=== PATIENT | female | born 1955 | race Caucasian/White ===

== ENCOUNTER 2021-02-12 13:22 | Outpatient (REF) | payer OTHER, SELFPAY ==
[2021-02-12 14:23] LABS: Anion Gap 13 (12-20); Blood Urea Nitrogen 18 mg/dL (9-16); Calcium 9.2 mg/dL (8.4-10.2); Carbon Dioxide 24 mmol/L (22-29); Chloride 107 mmol/L (96-108); Estimated Glomerular Filt Rate > 60; Glucose Random 98 mg/dL (60-115); Potassium 4.6 mmol/L (3.3-5.1); Sodium 139 mmol/L (135-145)
[2021-02-12 14:54] LABS: Thyroid Stimulating Hormone 1.92 uIU/mL (0.32-4.0)
[2021-02-12 14:56] LABS: Folate 11.4 ng/mL (> or = 4.0); Vitamin B12 410 pg/mL (200-900)
[2021-02-12 15:27] LABS: T4 Thyroxine 8.4 ug/dL (4.5-12.0)
[2021-02-13 06:02] LABS: Triiodothyronine T3 Total 128 ng/dL (76-181)
[2021-02-13 13:07] LABS: Lyme Abs Screen <0.90 index
[2021-02-13 13:45] LABS: IgA 309 mg/dL (70-320); IgG 841 mg/dL (600-1540); IgM 37 mg/dL (50-300)
== END 2021-02-12 13:23 | disposition home or self-care (01) ==
LOC: HO.LAB 13:22
PROVIDERS: PCP Internal Medicine; Visit Provider Psychiatry & Neurology Neurology
DX: G62.89 Other specified polyneuropathies (principal); E05.90 Thyrotoxicosis, unspecified without thyrotoxic crisis or storm
CPT/HCPCS: 36415; 80048; 82607; 82746; 82784; 84436; 84443; 84480; 86617; 86618

== ENCOUNTER 2023-04-13 12:39 | Outpatient (AMB) | payer MEDICARE, SELFPAY ==
--- NOTE | 2023-04-13 12:41 | A.OFFVIS_ITS ---
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 States she is having numbness and tingling in bilateral hands that started about ago. States left is worse.No EMG done. Hx of peripheral polyneuropathy mostly in her lower extremities. 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 This has improved in the last few weeks since she was referred here. She reports getting occasional numbness to the tips of her fingers. She says she has a hx of right carpal tunnel release several years ago with good results. She has a hx of longstanding polyneuropathy, primarily affecting her legs, and denies any history of Diabetes She has left lateral epicondylitis, her PCP gave her a handout of stretches & e xercises for lateral epicondylitis that she has been performing at home. She says her symptoms have been improving and now only occur occasionally. 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 [facility] Medical History (Updated 04/13/23 @ 13:00 by John Garcia) Cataract Hx of breast cancer Social History (Updated 04/13/23 @ 12:51 by Kerry Fitzpatrick 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 Review of Systems Const All systems reviewed & are unremarkable except as noted in HPI and below Physical Exam Vital Signs: BMI result Body Mass Index 32.1 Const General: cooperative, healthy appearing and no acute distress Orientation/consciousness: patient oriented x3 HEENT Head: Yes normocephalic and Yes atraumatic Eyes EOM: EOMs intact bilaterally Resp Effort & Inspection: normal respiratory effort and able to speak in complete sentences Cardio Jugular venous distension: no JVD Skin General skin exam: turgor normal Rashes: no rashes Neuro General: patient oriented x3 Extrem Other: Evaluation of Left Upper Extremity: The patient is alert, oriented, and in no acute distress Neuro: Median, Ulnar, Radial nerves motor and sensory intact today. No intrinsic or thenar wasting. Good finger cross and APB muscle belly firing Vascular: Cap refill brisk ROM: She can make a fist and extend all her digits No locking or catching Skin: No lacerations or abrasions. General: No Ecchymosis. No Erythema or evidence of infection. She is seen today wearing a left proximal forearm strap Mildly tender at the extensor origin just distal to the lateral epicondyle no swelling Psych Appearance: grossly normal Affect: normal affect Attitude: cooperative Assessment & Plan Assessment & Plan (1) Numbness of left hand: Code(s): R20.0 - Anesthesia of skin (2) History of carpal tunnel surgery of right wrist: Code(s): Z98.890 - Other specified postprocedural states (3) Left lateral epicondylitis: Code(s): M77.12 - Lateral epicondylitis, left elbow Plan Assessment & Plan: 1. Left hand numbness Symptoms intermittent & occasional, but several weeks ago was daily & worse at night She reports a hx of polyneuropathy primarily affecting her lower extremities, and denies any Diabetes I educated her about carpal & cubital tunnel syndrome I ordered a NCS to assess for peripheral nerve compression She will follow up when completed for review 2. Left lateral epicondylitis She is seen wearing a proximal forearm strap. I educated her about this condition She has been performing at-home stretches & exercises, which she says have im proved her symptoms She now has only occasional pain with some activities I recommend she continue with her exercises No intervention warranted today If her symptoms persist or worsen she can follow up and we can discuss treatment options, including a brace, OT referral, or possible steroid injection 3. History of right carpal tunnel release No complaints of numbness today Scribed for Lesli Roberts MD by John Garcia, medical superintendent, on 04/13/23 at 1:00 PM, EST. Orders: Orders NE nerve conduction velocity Today R20.0 - Anesthesia of skin Coding Level of Care Code New Pt Level 3 (88588) Diagnoses Numbness of left hand R20.0 History of carpal tunnel surgery of right wrist Z98.890 Left lateral epicondylitis M77.12
[2023-04-13 12:51] VITALS: BMI 32.1
== END 2023-04-13 13:02 | disposition home or self-care (01) ==
PROVIDERS: PCP Internal Medicine; Visit Provider Orthopaedic Surgery
DX: M79.642 Pain in left hand (principal); R20.0 Anesthesia of skin; M77.12 Lateral epicondylitis, left elbow
CPT/HCPCS: 99202

== ENCOUNTER → 2023-04-13 12:39 | Outpatient (BNVA) | payer MEDICARE, SELFPAY | PROVIDERS: PCP Internal Medicine; Visit Provider Orthopaedic Surgery | DX: R20.0 Anesthesia of skin (principal); M77.12 Lateral epicondylitis, left elbow; Z98.890 Other specified postprocedural states | CPT/HCPCS: 99202 ==

== ENCOUNTER 2023-05-07 15:31 | Outpatient (REF) | payer MEDICARE, SELFPAY ==
--- NOTE | 2023-05-07 15:35 | EMG_ITS ---
Chief complaint: Left hand numbness, elbow pain, improved with wearing counterforce brace Reason for referral: Evaluate for Carpal Tunnel Syndrome Referred by: Dr. Roberts Procedure done: Left upper extremity NCS/EMG Precautions and/or limitations: None The limb temperature was monitored continuously and remained between 32-36 degrees C during the performance of the NCS. Nerve Conduction Studies Anti Sensory Summary Table ?Stim Site NR Onset (ms) Norm Onset (ms) Peak (ms) Norm Peak (ms) O-P Amp (?V) Norm O-P Amp Site1 Site2 Delta-0 (ms) Dist (cm) David (m/s) Norm David (m/s) Left Median Anti Sensory (2nd Digit) Wrist ? 4.1 4.9 <3.6 4.7 >10 Wrist 2nd Digit 4.1 14.0 34 Left Radial Anti Sensory (Thumb) Forearm ? 1.9 2.3 <3.1 15.9 Forearm Thumb 1.9 0.0 Left Ulnar Anti Sensory (5th Digit) Wrist ? 3.0 3.6 <3.7 19.8 >15.0 Wrist 5th Digit 3.0 14.0 47 Motor Summary Table ?Stim Site NR Onset (ms) Norm Onset (ms) O-P Amp (mV) Norm O-P Amp iAmp (mV) Amp (1st) (%) Site1 Site2 Delta-0 (ms) Dist (cm) David (m/s) Norm David (m/s) Left Median Motor (Abd Poll Brev) Wrist ? 4.3 <3.9 10.0 >4.5 12.2 100.0 Elbow Wrist 4.3 22.0 51 >45 Elbow ? 8.6 9.9 12.0 99.0 Left Ulnar Motor (Abd Dig Minimi) Wrist ? 2.7 <3.0 8.6 >5 11.2 100.0 B Elbow Wrist 3.5 21.0 60 >45 B Elbow ? 6.2 9.0 11.4 104.7 A Elbow B Elbow 1.5 10.0 67 >45 A Elbow ? 7.7 8.6 10.8 100.0 EMG ?Side Muscle Nerve Root Ins Act Fibs Psw Amp Dur Poly Recrt Int Pat Comment Left 1stDorInt Ulnar C8-T1 Nml Nml Nml Nml Nml 0 Nml Complete Left FlexCarRad Median C6-7 Nml Nml Nml Nml Nml 0 Nml Complete Left Biceps Musculocut C5-6 Nml Nml Nml Nml Nml 0 Nml Complete Left Triceps Radial C6-7-8 Nml Nml Nml Nml Nml 0 Nml Complete Left Deltoid Axillary C5-6 Nml Nml Nml Nml Nml 0 Nml Complete FINDINGS: Left median motor nerve showed prolonged distal latency, normal amplitude and normal conduction velocity. Left median sensory nerve showed prolonged peak latency and small amplitude. All other nerves tested were within normal. Concentric needle EMG was performed in selected muscles of the left upper extremity. Study did not reveal signs of electric abnormalities as shown in the table below. IMPRESSION: 1. This is an abnormal study. 2. There is electrodiagnostic evidence for left moderate-severe median neuropathy at the wrist, consistent with carpal tunnel syndrome. 3. There is no electrodiagnostic evidence for ulnar neuropathy, brachial plexopathy, or cervical radiculopathy. Thank you for your kind referral. Evy Khan MD, MITCHEL Board Certified, [place] [employer] and Rehabilitation (ABPMR) Board Certified, [place] Board of Electrodiagnostic Medicine (ABEM) CODIN [id number] MTDD
== END 2023-05-07 15:32 | disposition home or self-care (01) ==
LOC: HO.NEURO 15:31
PROVIDERS: PCP Internal Medicine; Visit Provider Orthopaedic Surgery
DX: R20.0 Anesthesia of skin (principal)
CPT/HCPCS: 95886; 95909

== ENCOUNTER → 2023-05-07 15:35 | Outpatient (BNV) | payer MEDICARE, SELFPAY | PROVIDERS: PCP Internal Medicine; Visit Provider Physical Medicine & Rehabilitation | DX: G56.02 Carpal tunnel syndrome, left upper limb (principal); G56.12 Other lesions of median nerve, left upper limb | CPT/HCPCS: 95886; 95909 ==

== ENCOUNTER 2023-12-07 11:04 | Outpatient (AMB) | payer BC, SELFPAY ==
--- NOTE | 2023-12-07 11:36 | MHC.OFFVIS ---
Vital Signs 12/07/23 11:40 Height 5 ft 7 in Weight 205 lb BMI 32.1 Intake Visit Reasons: OV-left CTR. EMG done 04/2023 -discuss surgery Intake Note: Lizbeth 68 yr old right hand female who presents today for evaluation of left hand carpal tunnel syndrome. Patient reports numbness and tingling that occurs daily however she reports no trouble squeezing, gripping, or opening and closing jars or bottles. Denies finger locking. Patient denies any surgeries or injuries to the left hand. Hx right CTR. EMG showing left CTS, DOS: 05/07/23. Allergies No Known Allergies Allergy (Verified 12/07/23 11:46) HPI HPI OV-left CTR. EMG done 04/2023 -discuss surgery: Details: Lizbeth is a 68 year old right hand dominant woman who returns for a NCS review of her left hand numbness She complains of numbness in her left thumb, index, and middle fingers. She says this is worse in her thumb & index fingers, and she recently began feeling a constant buzzing sensation in these fingers. Symptoms daily, worse at night or with activities. She says she has a hx of right carpal tunnel release several years ago with good results. She has left lateral epicondylitis, her PCP gave her a handout of stretches & exercises for lateral epicondylitis that she has been performing at home. She says her symptoms have been improving and now only occur occasionally. She has a hx of longstanding polyneuropathy, primarily affecting her legs, and denies any history of Diabetes. 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 Normal sensation to the ulnar nerve distribution No intrinsic or thenar wasting. Good finger cross and APB muscle belly firing Vascular: Cap refill brisk ROM: She can make a fist and extend all her digits No locking or catching Nerve Conduction Study: IMPRESSION: 1. This is an abnormal study. 2. There is electrodiagnostic evidence for left moderate-severe median neuropathy at the wrist, consistent with carpal tunnel syndrome. 3. There is no electrodiagnostic evidence for ulnar neuropathy, brachial plexopathy, or cervical radiculopathy. Evy Khan MD, MITCHEL 05/07/23 Assessment & Plan Assessment & Plan (1) Carpal tunnel syndrome of left wrist: Code(s): G56.02 - Carpal tunnel syndrome, left upper limb Category: Medical (2) History of carpal tunnel surgery of right wrist: Code(s): Z98.890 - Other specified postprocedural states Category: Surgical (3) Left lateral epicondylitis: Code(s): M77.12 - Lateral epicondylitis, left elbow Category: Medical Plan Assessment & Plan: 1. Left carpal tunnel syndrome, moderate-severe Decreased sensation in the median nerve distribution. She reports a hx of polyneuropathy primarily affecting her lower extremities, and denies any Diabetes I educated her about this condition I discussed operative and non-operative treatment options The patient would like to proceed with surgery The risks and benefits of operative treatment were discussed with the patient and the patient wishes to proceed with surgery. These risks include, but are not limited to risk of damage to blood vessels, nerves, tendons, infection, recurrence, incomplete relief of preoperative symptoms, persistent pain, possible need for further surgery and the risks associated with regional blocks and anesthesia. The plan is to take the patient to the operating room sometime in the next few weeks for the following procedures: 1. Left carpal tunnel release, under local All of the preoperative paperwork including the consent was reviewed today. All the patient's questions were answered. The patient understands that they will be contacted by our boarder hand soon to schedule this procedure She denies Diabetes, asthma, lung, kidney issues She is on Warfarin 2. Left lateral epicondylitis She is seen wearing a proximal forearm strap. No complaints today She has been performing at-home stretches & exercises, which she says have improved her symptoms I recommend she continue with her exercises No intervention warranted today If her symptoms persist or worsen she can follow up and we can discuss treatment options, including a brace, OT referral, or possible steroid injection 3. History of right carpal tunnel release No complaints of numbness today Scribed for Lesli Roberts MD by John Garcia, medical detail representative, on 12/07/23 at 12:00 PM, EST. Coding Level of Care Code Est Pt Level 4 (84979) Diagnoses Carpal tunnel syndrome of left wrist G56.02 History of carpal tunnel surgery of right wrist Z98.890 Left lateral epicondylitis M77.12
[2023-12-07 11:40] VITALS: BMI 32.1
== END 2023-12-07 12:24 | disposition home or self-care (01) ==
PROVIDERS: PCP Internal Medicine; Visit Provider Orthopaedic Surgery
DX: G56.02 Carpal tunnel syndrome, left upper limb (principal); M77.12 Lateral epicondylitis, left elbow
CPT/HCPCS: 99214

== ENCOUNTER → 2023-12-07 11:04 | Outpatient (BNVA) | payer BC, SELFPAY | PROVIDERS: PCP Internal Medicine; Visit Provider Orthopaedic Surgery ==

== ENCOUNTER 2024-02-28 13:12 | Day surgery (SDC) | payer MEDICARE, SELFPAY ==
[2024-02-28 14:02] VITALS: BP 121/70; PULSE 86; RESP 18; TEMP 36.6; O2SAT 97; BMI 32.4
--- NOTE | 2024-02-28 15:38 | MHC.SHP ---
Pre-Procedural Eval Section A - 24 Hr Update-Section A only Date of Service: 02/28/24 The patient is an INPATIENT: No Changes since office visit: No Cold of Flu in the past 2 weeks, No New Medical Problems, No Changes in Medication and No Patient answered all questions The patient has been examined within 24 hours of the surgical procedure. The History & Physical has been completed within 30 days and I have reviewed it.: Yes Section B - Complete if H&P > 30 days Chief Complaint: Carpal tunnel syndrome, left upper limb Allergies: Allergies Allergy/AdvReac Type Severity Reaction Status Date / Time No Known Allergies Allergy Verified 12/07/23 11:46 Plan Diagnosis/Plan: Unchanged I have reviewed the history and physical and performed a pertinent physical examination on my patient. No changes have occurred unless specified. Time Spent With Patient Time: Total time managing care of this patient today ____ minutes.
--- NOTE | 2024-02-28 15:46 | P.OP_ITS ---
Operative Note Operative Note Date of Service: 02/28/24 Narrative: Preop diagnosis: 1. Left Carpal tunnel syndrome Postop diagnosis: same Procedure: 1. Left Carpal tunnel release Surgeon: Lesli Roberts MD Extension Work Director: None Anesthesia: local block using 1% lidocaine with epinephrine Findings: Thickened transverse carpal ligament. EBL: Less than 5 mL Specimens: None Complications: None Disposition: Brought to recovery room in stable condition Plan: Follow-up for 10-14 days for wound check and suture removal Indications: The patient is 68 years old, with left carpal tunnel syndrome that has been unresponsive to nonoperative management. The risks and benefits of operative treatment including but not limited to risk of damage to blood vessels, nerves, tendons, infection, persistent pain, persistent symptoms, or possible need for additional surgery were discussed with the patient and the patient wishes to proceed with surgery. Procedure: Once consent was obtained a local block was performed using a combination of 1% lidocaine with epinephrine. The patient was then brought back to the operating suite and placed on the operative table in supine position. The left upper extremity was prepped and draped in a standard surgical fashion. Once assured that we had a good block, a 2.0 cm longitudinal incision was made centered over the carpal tunnel. The incision was made through the skin to the subcutaneous tissues using a #15 blade. Dissection was made down to the level of the transverse carpal ligament with care being taken to protect the palmar cutaneous nerve. Once the transverse carpal ligament was clearly visualized, a longitudinal incision was made in the transverse carpal ligament 1st using a #15 blade, then using tenotomy scissors under direct visualization. Care was taken to look for and protect the motor branch of the median nerve when seen in this area. Once satisfied with our carpal tunnel release the wound was copiously irrigated with normal saline and hemostasis was obtained with a brief period of local pressure. The skin edges were reapproximated with some 5.0 nylon suture material and a sterile dressing was applied. The patient appears to have tolerated the procedure well and with no complicatio ns. All digits were well vascularized at the conclusion of the case.
[2024-02-28 16:20] VITALS: BP 133/84; PULSE 77; RESP 18; TEMP 36.6; O2SAT 96
== END 2024-02-28 16:40 | disposition home or self-care (01) ==
PROVIDERS: PCP Internal Medicine; Visit Provider Orthopaedic Surgery
PROC: (CPT 64721; principal; 2024-02-28 14:50)
DX: G56.02 Carpal tunnel syndrome, left upper limb (principal); R20.0 Anesthesia of skin; R20.2 Paresthesia of skin; M77.12 Lateral epicondylitis, left elbow; Z85.3 Personal history of malignant neoplasm of breast; G62.9 Polyneuropathy, unspecified; Z79.01 Long term (current) use of anticoagulants; Z98.890 Other specified postprocedural states
CPT/HCPCS: 64721; J0171; J2003; J2004

== ENCOUNTER → 2024-02-28 13:12 | Outpatient (BNV) | payer MEDICARE, SELFPAY | PROVIDERS: PCP Internal Medicine; Visit Provider Orthopaedic Surgery | DX: G56.02 Carpal tunnel syndrome, left upper limb (principal) | CPT/HCPCS: 64721 ==

== ENCOUNTER 2024-03-03 15:05 | Outpatient (AMB) | payer MEDICARE, SELFPAY ==
--- NOTE | 2024-03-03 15:47 | A.OFFVIS_ITS ---
Intake Visit Reasons: PO LT CTR 02/28/24 AR, redness/swelling Intake Note: Lizbeth is a 68 year old right hand dominant female who presents today for a post operative visit s/p left carpal tunnel release DOS: 02/28/2024. Patient reports swelling and tenderness in her pointer finger. States that she is scheduled to s ee her PCP on Wednesday but feels she should be seen here sooner due to her recent surgery. Allergies No Known Allergies Allergy (Verified 03/21/24 13:15) HPI HPI PO LT CTR 02/28/24 AR, redness/swelling: Details: Lizbeth is a 68 year old right hand dominant female who presents today for a post operative visit s/p left carpal tunnel release DOS: 02/28/2024. Patient reports swelling and tenderness in her pointer finger. States that she is scheduled to see her PCP on Wednesday but feels she should be seen here sooner due to her recent surgery. 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 Neuro: Normal sensation of the tips of all digits of the left hand at this time Vascular: Cap refill brisk Pain: Minimal tenderness to palpation about the proximal aspect of the incision site No pain with range of motion of the left hand ROM: Patient is able to make a closed fist and extend all digits of the left hand fully and without difficulty Skin: Well-approximated incision site noted on the volar left wrist very mild erythema of the incision site, appears hyperemic General: No ecchymosis or other evidence of infection. Psych: Appears grossly normal Affect normal Attitude cooperative Assessment & Plan Assessment & Plan (1) Carpal tunnel syndrome of left wrist: Code(s): G56.02 - Carpal tunnel syndrome, left upper limb Category: Medical Plan 1. status post left carpal tunnel release DOS 02/28/2024 Patient appears to be recovering well postoperatively Patient is educated about the typical recovery course Patient will follow-up in 1 week for wound check Patient was amenable to this plan Medications: New amoxicillin-pot clavulanate 875-125 mg 1 tab PO BID 14 tabs 0RF 7 days Coding Level of Care Code Global (14431) Diagnoses Carpal tunnel syndrome of left wrist G56.02
== END 2024-03-03 16:02 | disposition home or self-care (01) ==
PROVIDERS: PCP Internal Medicine
DX: G56.02 Carpal tunnel syndrome, left upper limb (principal)
CPT/HCPCS: 99024

== ENCOUNTER → 2024-03-03 15:05 | Outpatient (BNVA) | payer MEDICARE, SELFPAY | PROVIDERS: PCP Internal Medicine | DX: G56.02 Carpal tunnel syndrome, left upper limb (principal) | CPT/HCPCS: 99212 ==

== ENCOUNTER 2024-03-14 12:51 | Outpatient (AMB) | payer BC, SELFPAY ==
--- NOTE | 2024-03-14 12:58 | A.OFFVIS_ITS ---
Intake Visit Reasons: PO LT CTR 02/28/24 AR Intake Note: Lizbeth is a 89 year old right hand dominant female who presents today for a post operative visit s/p left carpal tunnel release DOS: 02/28/[address] Roberts[address] Sutures removed and steri-strips applied. Patient reports she is doing well, states her numbness and tingling has subsided. Allergies No Known Allergies Allergy (Verified 03/14/24 13:06) HPI HPI PO LT CTR 02/28/24 AR: Details: Lizbeth is a 89 year old right hand dominant female who presents today for a post operative visit s/p left carpal tunnel release DOS: 02/28/[address] Roberts[address] Sutures removed and steri-strips applied. Patient reports she is doing well, states her numbness and tingling has subsided. 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 Neuro: Normal sensation of the tips of all digits of the left hand at this time Vascular: Cap refill brisk Pain: Minimal tenderness to palpation about the proximal aspect of the incision site No pain with range of motion of the left hand ROM: Patient is able to make a closed fist and extend all digits of the left hand fully and without difficulty Skin: Well-approximated incision site noted on the volar left wrist There is noted to be some mild erythema surrounding the most proximal aspect of the incision, concerning for potential cellulitis versus suture irritation General: No ecchymosis, erythema, or evidence of infection. Psych: Appears grossly normal Affect normal Attitude cooperative Assessment & Plan Assessment & Plan (1) Carpal tunnel syndrome of left wrist: Code(s): G56.02 - Carpal tunnel syndrome, left upper limb Category: Medical Plan 1. status post left carpal tunnel release DOS 02/28/2024 Patient appears to be recovering fairly well postoperatively Patient is educated about the typical recovery course Out of an abundance of caution, due to the small amount of erythema noted most proximal aspect of the incision, I am sending her a one-week course of Augmentin Patient will follow-up in 1 week for wound check Patient was amenable to this plan Medications: New amoxicillin-pot clavulanate 875-125 mg 1 tab PO BID 7 days 14 tabs 0RF Coding Level of Care Code Global (66681) Diagnoses Carpal tunnel syndrome of left wrist G56.02
--- OUTSIDE RECORDS SUMMARY | 2024-03-14 13:40 | XMS_ITS | Encounter Summary ---
Author Organization [facility] Address [address] [place] [address] Care Team Providers Care Ship Erector Name Role Phone Lula Ambrose MD Primary Care Prov ider Encounter Details Date Type Department Care Team (Latest Contact Info) Description 02/22/2024 Anticoagulation - Warfarin Visit Coumadin Clinic - [address] [place] [phone] Iram Kitchen LPN Atrial fibrillation, unspecified type (CMS/HCC) (Primary Dx); shelter (current) use of anticoagulants Social History Tobacco Use Types Packs/Day Years Used Date Smoking Tobacco: Former Cigarettes Q uit: 02/15/2003 Smokeless Tobacco: Never Alcohol Use Standard Drinks/Week Comments Yes 0 (1 standard drink = 0.6 oz pur e alcohol) Sex and Gender Information Value Date Recorded Sex Assigned at Female 02/28/2024 9:27 AM EST Gender Identity Female 02/28/2024 9:27 AM EST Sexual Orientation Not on file Job Start Date Occupation Industry Not on file Not on file Not on file documented as of this encounter Plan of Treatment Upcoming Encounters Date Type Department Care Team (Late st Contact Info) Description 04/19/2024 3:30 PM EST Ancillary Procedure [facility] - [address] [place] [phone] 04/24/2024 1:15 PM EDT Office Visit Adult Medicine - [address] [place] [phone] Lula Ambrose MD [address] [place], [place] [phone] 05/16/2024 10:00 AM EDT Office Visit Endocrinology - [place] [address] [place] [phone] Geovanna Pascual PA [address] [place] [address] 06/27/2024 11:30 AM EDT Office Visit [facility] Hematology Oncology [address] [place] [phone] Kobe Fox MD [address] [place] [phone] documented as of this encounter Visit Diagnoses Diagnosis Atrial fibrillation, unspecified type (CMS/HCC)- Primary 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
--- OUTSIDE RECORDS SUMMARY | 2024-03-14 13:40 | XMS_ITS | Encounter Summary ---
Author Organization [facility] Address [address] [place] [address] Care Team Providers Care Hostel Manager Name Role Phone Lula Ambrose MD Primary Care Prov ider Reason for Visit * Reason Onset Date Comments Hospital Follow-up 02/29/2024 Encounter Details Date Type Department Care Team ([facility] st Contact Info) Description 02/29/2024 Telephone Adult Medicine - [facility] [place] [address] [place] [phone] Lula Ambrose MD [address] [place] [address] Hospital Follow-up Social History Tobacco Use Types Packs/Day Years [...] on file documented as of this encounter Progress Notes * Reane Lagos RN - 02/29/2024 3:17 PM EST Spoke with patient. Appt scheduled 03/06 * Porfirio Olivares - 02/29/2024 3:13 PM EST Patient called back. Please call * Phil Patino RN - 02/29/2024 2:54 PM EST Left message for pt to please return our call * Porfirio Olivares - 02/29/2024 2:49 PM EST Hospital/ER follow up appointment needed Hospital patient was treated at: [facility] Was this only an ER visit or was the patient admitted to the hospital? Was there for 4 hours for Carpal tunnel surgery only Date of visit if ER visit only: 02/28/2024 If patient was admitted what was the date of discharge? Reason/diagnosis for visit or stay: Carpal tunnel surgery When was the patient told to follow up? In one week Was visit or stay related to an injury? If yes, what was the date of injury (DOI)? No If yes, was the injury due to: Not 3rd libertarian related documented in this encounter Plan of Treatment Upcoming Encounters Date Type Department Care Team (Late st Contact Info) Description 04/19/2024 3:30 PM EST Ancillary Procedure [facility] - [facility] [address] 300 [facility] [place] [address] [place] [phone] 04/24/2024 1:15 PM EDT Office Visit Adult Medicine - [place] [address] [place] [phone] Lula Ambrose MD [address] [place] [address] 05/16/2024 10:00 AM EDT Office Visit Endocrinology - [address] [phone] Geovanna Pascual PA [address] [place] [address] 06/27/2024 11:30 AM EDT Office Visit [facility] Hematology Oncology [address] [place] [address] Kobe Fox MD [address] [place] [phone] documented as of this encounter Visit Diagnoses Not on filedocumented in this encounter Care Teams Hostel Manager Relationship Specialty Start Date End Date Lula Ambrose MD [address] [place] [address] PCP - General Internal Medicine 12/17/14 documented as of this encounter
--- OUTSIDE RECORDS SUMMARY | 2024-03-14 13:40 | XMS_ITS | Clinical Summary ---
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 2 pill daily Active lisinopriL (PRINIVIL,ZESTRI L) 5 mg tablet Take 1 tablet (5 mg total) by mouth daily. Active warfarin (COUMADIN) 5 mg tablet Take 1 tablet (5 mg total) by mouth daily. Active gabapentin (NEURONTIN) 300 mg capsule TAKE 1 CAPSULE BY MOUTH THREE TIMES A DAY 270 capsule 1 4 Active atorvastatin (LIPITOR) 20 mg tabletIndication s:Hyperlipidemia , unspecified TAKE 1 TABLET BY MOUTH EVERY DAY 90 tablet 2 4 Active tamoxifen (NOLVADEX) 20 mg chemo tablet TAKE 1 TABLET BY MOUTH EVERY DAY 90 tablet 3 5 Active dilTIAZem CD (CARDIZEM CD) 240 mg 24 hr capsule Take 1 capsule (240 mg total) by mouth 1 (one) time each day. 90 each 1 5 09/03/19 25 Active betamethasone, augmented, (DIPROLENE-AF) 0.05 % cream Apply topically 2 (two) times a day. 03/06/19 25 Discontinued(The rapy completed) calcipotriene (DOVONOX) 0.005 % ointment Apply topically 2 (two) times a day. 03/06/19 25 Discontinued(The rapy completed) dilTIAZem CD (CARDIZEM CD) 240 mg 24 hr capsule Take 1 capsule (240 mg total) by mouth daily. 03/06/19 Discontinued(Reo rder) fluocinonide (LIDEX) 0.05 % cream Apply topically 2 (two) times a day. 03/06/19 Discontinued(The rapy completed) ketoconazole (NIZORAL) 2 % cream Apply topically daily. 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 Atypical ductal hyperplasia of left breast 04/16 Encounters Date Type Department Care Team Description 03/06/2024 1:30 PM EST Office Visit Adult Medicine [address] [phone] Lula Wong MD Left carpal tunnel syndrome (Primary Dx); Atrial fibrillation, unspecified type (CMS/HCC) 02/29/2024 Telephone Adult Medicine [address] [phone] Lula Wong MD Hospital Follow-up 02/22/2024 Anticoagulation - Warfarin Visit Coumadin [address] [phone] Iram Kitchen LPN Atrial fibrillation, unspecified type (CMS/HCC) (Primary Dx); 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 01/31/2024 Telephone [facility] - [facility] [address] [facility] [address] [place] [address] Trinh Hooevr MD Med Refill 01/26/2024 Anticoagulation - [facility]farin Visit [facility] [address] [phone] Iram Hirsch LPN Atrial fibrillation, unspecified type (CMS/HCC) (Primary Dx); alf (current) use of anticoagulants 01/11/2024 Anticoagulation - Warfarin Visit [facility] [address] [place] [phone] Cecy Kahn LPN Atrial fibrillation, unspecified type (CMS/HCC) (Primary Dx); alf (current) use of anticoagulants 01/04/2024 11:30 AM EST Office Visit [facility] Hematology Oncology [address] [place] [address] Kobe Fox MD Atypical ductal hyperplasia of left breast (Primary Dx) 12/29/2023 Anticoagulation - Warfarin Visit [facility] [address] [phone] Lula Wong MD from Last 3 Months Immunizations Name Administration Dates Next Due Influenza trivalent, 0.5mL ( Fluad) 65yo and older 03/06/2024 handsomexcutive SARS-CoV-2 COVID-19, mRNA, LNP-S, preservative free 08/04/2021,06/30/2020,06/09/2020 Surgical History Surgery Date Site/Laterality Comments OTHER SURGICAL HISTORY PROCEDURE: [place] NASAL/SINUS NDSC SURG W/BX POLYPC/DBRDMT SPX; COMMENT: 1974 CARPAL TUNNEL RELEASE PROCEDURE: HISTORICAL CARPAL TUNNEL REL; COMMENT: 2014 LIPOMA RESECTION PROCEDURE: SKIN TISSUE EXCISION(LIPOMA); COMMENT: 2014 Medical History Medical History Date Comments Psoriasis DX:Psoriasis Atypical ductal hyperplasia of left breast 07/19/2020 DX:Atypical ductal hyperplas ia of left breast Prediabetes 07/19/2020 DX:Prediabetes Family History Medical History Relation Name Comments Thyroid disease Other 1 mother, sist er Coronary artery disease Uncle 1 mate rnal uncle, in his 60s Relation Name Status Comments Father Alive Mother Alive Other 1 Other 2 Sister 1 Alive Sister 2 Alive Uncle 1 Uncle 2 Social History Tobacco Use Types Packs/Day Years Used Date Smoking Tobacco: Former Cigarettes Q uit: 02/15/2003 Smokeless Tobacco: Never Tobacco Cessation:Counseling Given: Not Answered Alcohol Use Standard Drinks/Week Comments Yes 0 (1 standard drink = 0.6 oz pur e alcohol) Sex and Gender Information Value Date Recorded Sex Assigned at Female 02/28/2024 9:27 AM EST Gender Identity Female 02/28/2024 9:27 AM EST Sexual Orientation Not on file Job Start Date Occupation Industry Not on file Not on file Not on file Obstetrics History Last Filed Vital Signs Vital Sign Reading Time Taken Comments Blood Pressure 108/77 03/06/2024 1:35 PM EST Pulse 98 03/06/2024 1:35 PM EST Temperature 36.7 ??C (98 ??F) 03/06/2024 1:35 PM EST Respiratory Rate - - Oxygen Saturation 97% 01/04/2024 11:39 AM EST Inhaled Oxygen Concentration - - Weight 90.8 kg (200 lb 3.2 oz) 03/06/2024 1:35 P M EST Height 167.6 cm (5' 6 ) 03/06/2024 1:35 PM EST Body Mass Index 32.31 03/06/2024 1:35 PM EST Plan of Treatment Upcoming Encounters Date Type Department Care Team (Late st Contact Info) Description 04/19/2024 3:30 PM EST Ancillary Procedure [facility] - [facility] [address] [facility] [place] [address] [place] [phone] 04/24/2024 1:15 PM EDT Office Visit Adult Medicine [facility] [address] [place] [phone] Lula Ambrose MD [address] [place] [address] 05/16/2024 10:00 AM EDT Office Visit Endocrinology - [address] [phone] Geovanna Pascual PA [address] [place] [phone] 06/27/2024 11:30 AM EDT Office Visit [facility] Hematology Oncology [address] [place] [phone] Kobe Fox MD [address] [place] [phone] Health Maintenance Due Date Last Done Comments Breast Cancer Screening 1955 RSV Immunization Patients 60+ Years Old (1 - Risk 60-74 years 1-dose series) 2016 Cholesterol Screening (Lipid Panel) 01/24/2022 Colorectal Cancer Screening: Colonoscopy 01/24/2022 Depression Screening 01/24/2022 Falls Risk Assessment 01/24/2022 Hepatitis C Screening 01/24/2022 Medicare Annual Wellness Visit 01/24/2022 Social Influencers of Health Screening 01/24/2022 COVID-19 Vaccine ( season) 2023 08/04/2021, 02/09/2021, 06/30/2020, Additional history exists Hypertension/CHF/CAD Annual BMP Blood Test 10/24/2024 10/25/2023 DTaP,Tdap,and Td Vaccines (2 - Td or Tdap) 02/04/2025 02/04/2015 Osteoporosis Screening (Bone Density Screening) 06/06/2033 06/07/2023, 05/09/2020 Zoster Vaccines Completed 02/20/2022, 04/07/2021 Pneumococcal Vaccine: 65+ Years Completed 10/25/2023, 09/30/2021 Influenza Vaccine Completed 03/06/2024, , 01/01/2020 HIB Vaccines Aged Out No longer eligi ble based on patient's age to complete this topic HPV Vaccines Aged Out No longer eligi ble based on patient's age to complete this topic Hepatitis A Vaccines Aged Out No long er eligible based on patient's age to complete this topic Hepatitis B Vaccines Aged Out No long er eligible based on patient's age to complete this topic IPV Vaccines Aged Out No longer eligi ble based on patient's age to complete this topic MMR Vaccines Aged Out No longer eligi ble based on patient's age to complete this topic Meningococcal ACWY Vaccine Aged Out N o longer eligible based on patient's age to complete this topic RSV Immunization Patients Under 20 months Aged Out No longer eligible based on patient's age to complete this topic Varicella Vaccines Aged Out No longer eligible based on patient's age to complete this topic Procedures Procedure Name Priority Date/Time Associated Diagnosis Comments PROTHROMBIN TIME WITH INR Routine 02/22/2024 12:38 PM EST Atrial fibrillation, unspecified type (CMS/HCC) 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 PROTHROMBIN TIME WITH INR Routine 01/25/2024 3:34 PM EST Encounter for therapeutic drug monitoring 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 Protime 25.9(H) 10.6 - 13.9 sec LAB COAGULATION METHOD 02/22/2024 2:28 PM EST [facility] INR 2.1 LAB COAGULATION METHOD 02/22/2024 2:28 PM EST [facility] Blood Venous blood specimen / Unknown Venipuncture / Unknown 02/22/2024 12:38 PM EST 02/22/2024 12:38 PM EST Lula Ambrose MD LAB BLOOD ORDERABLES [facility] [address] [place] [address], * DXA BONE DENSITY STUDY 1+ SITS AXIAL SKEL (06/07/2023 11:36 AM EDT) Anatomical Region Laterality Modality Bone Densitometr y 04/20/2023 10:5 0 AM EST Narrative 06/07/2023 7:05 PM EDT BONE DENSITY ? Lumbar Spine T-score is +0.8 ?? (SD relative to 20-29 y/o adult) Z-score is +2.8 ??(SD relative to age matched peers) This is normal by criteria defined by the WHO. Left Hip T-score is -0.5 Z-score is +1.1 This is normal by criteria defined by the WHO. Comparison exam(s): None Confidence level is +/-95%. Impression: Based on the World Health Organization criteria, Lizbeth Stoddard should be classified as having normal bone density. [facility] Department of Internal Medicine recommends using National Osteoporosis Foundation (NOF) guidelines in treatment decisions related to osteoporosis. NOF guidelines suggest considering treatment for postmenopausal women and men aged 50 or older presenting with the following: History of hip or vertebral fracture. T-score less than or equal to -2.5 (DXA) at the femoral neck, total hip, or spine, after appropriate evaluation to exclude secondary causes. Low bone mass (T-score between -1.0 and -2.5 at the femoral neck or spine) AND a 10-year probability of a hip fracture greater than or equal to 3% OR a 10-year probability of a major osteoporosis-related fracture greater than or equal to 20% based on the [place]-adapted WHO algorithm Please note that all treatment decisions require clinical judgment and consideration of individual patient factors, including patient preferences, co-morbidities, previous drug use, risk factors not captured in the FRAX model (e.g., frailty, falls, vitamin D deficiency, increased bone turnover, interval significant decline in bone density) and possible under- or over-estimation of fracture risk by FRAX. Procedure Note Gregorio Tapia MD - 10/04/2023 BONE DENSITY Lumbar Spine T-score is +0.8 (SD relative to 20-29 y/o adult) Z-score is +2.8 (SD relative to age matched peers) This is normal by criteria defined by the WHO. Left Hip T-score is -0.5 Z-score is +1.1 This is normal by criteria defined by the WHO. Comparison exam(s): None Confidence level is +/-95%. Impression: Based on the World Health Organization criteria, Lizbeth Stoddard should beclassified as having normal bone density. [facility] Department of Internal Medicine recommendsusing National Osteoporosis Foundation (NOF) guidelines in treatmentdecisions related to osteoporosis. NOF guidelines suggest consideringtreatment for postmenopausal women and men aged 50 or older presentingwith the following: History of hip or vertebral fracture. T-score less than or equal to -2.5 (DXA) at the femoral neck, total hip,or spine, after appropriate evaluation to exclude secondary causes. Low bone mass (T-score between -1.0 and -2.5 at the femoral neck or spine)AND a 10-year probability of a hip fracture greater than or equal to 3% ORa 10-year probability of a major osteoporosis-related fracture greaterthan or equal to 20% based on the [place]-adapted WHO algorithm Please note that all treatment decisions require clinical judgment andconsideration of individual patient factors, including patientpreferences, co-morbidities, previous drug use, risk factors not capturedin the FRAX model (e.g., frailty, falls, vitamin D deficiency, increasedbone turnover, interval significant decline in bone density) and possibleunder- or over-estimation of fracture risk by FRAX. Sari YANEZ IMG DXA PROCEDURES from Last 3 Months or Most Recently Relevant to Health Maintenance Care Teams Rafter Cutting Machine Operator Relationship Specialty Start Date End Date Lula Ambrose MD [address] [place] [address] [phone] PCP - General Internal Medicine 12/17/14
--- OUTSIDE RECORDS SUMMARY | 2024-03-14 13:40 | XMS_ITS | Encounter Summary ---
Author Organization [facility] Address [address] [place] [address] Care Team Providers Care Manager Balance Name Role Phone Lula Ambrose MD Primary Care Prov ider Reason for Visit * Reason Comments Hypertension Follow-up Encounter Details Date Type Department Care Team ([facility] Contact Info) Description 03/06/2024 1:30 PM EST Office Visit Adult Medicine - [address] [phone] Lula Ambrose MD [address] [place] [address] Left carpal tunnel syndrome (Primary Dx); Atrial fibrillation, unspecified type (CMS/HCC) Social History Tobacco Use Types Packs/Day Years [...] on file documented as of this encounter Last Filed Vital Signs Vital Sign Reading Time Taken Comments Blood Pressure 108/77 03/06/2024 1:35 PM EST Pulse 98 03/06/2024 1:35 PM EST Temperature 36.7 ??C (98 ??F) 03/06/2024 1:35 PM EST Respiratory Rate - - Oxygen Saturation - - Inhaled Oxygen Concentration - - Weight 90.8 kg (200 lb 3.2 oz) 03/06/2024 1:35 P M EST Height 167.6 cm (5' 6 ) 03/06/2024 1:35 PM EST Body Mass Index 32.31 03/06/2024 1:35 PM EST documented in this encounter Ordered Prescriptions Prescription Sig Dispensed Refills Start Date End Da te dilTIAZem CD (CARDIZEM CD) 240 mg 24 hr capsule Take 1 capsule (240 mg total) by mouth 1 (one) time each day. 90 each 1 03/06/2024 09/02/2024 documented in this encounter Progress Notes * Lula Ambrose MD - 03/06/2024 1:30 PM EST CHIEF COMPLAINT: Hypertension and Follow-up IDENTIFIER: Lizbeth Stoddard is a 68 y.o. old female. HPI: 68-year-old presents alone for follow-up after carpal tunnel release surgery. 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 Atypical ductal hyperplasia of left breast 04/16/2020 SOCIAL HISTORY: Social History Tobacco Use Smoking status: Former Current packs/day: 0.00 Types: Cigarettes Quit date: 02/15/2003 Years since quittin.0 Smokeless tobacco: Never Substance Use Topics Alcohol use: Yes FAMILY HISTORY: Family Status Relation Name Status Other (Not Specified) Uncle (Not Specified) Mother Alive Father Alive Sister Alive Sister Alive Other (Not Specified) Uncle (Not Specified) No partnership data on file Family History Problem Relation Name Age of Onset Thyroid disease Other mother, sister Coronary artery disease Uncle maternal uncle, in his 60s ACTIVE MEDICATIONS: Outpatient Medications Marked as Taking for the 03/06/24 encounter (Office Visit) with Lula Ambrose MD Medication Sig Dispense Refill atorvastatin (LIPITOR) 20 mg tablet TAKE 1 TABLET BY MOUTH EVERY DAY 90 tablet 2 dilTIAZem CD (CARDIZEM CD) 240 mg 24 hr capsule Take 1 capsule (240 mg total) by mouth 1 (one) timeeach day. 90 each 1 gabapentin (NEURONTIN) 100 mg capsule Take 3 capsules (300 mg total) by mouth 2 (two) times a day. 2 pill daily gabapentin (NEURONTIN) 300 mg capsule TAKE 1 CAPSULE BY MOUTH THREE TIMES A DAY 270 capsule 1 lisinopriL (PRINIVIL,ZESTRIL) 5 mg tablet Take 1 tablet (5 mg total) by mouth daily. tamoxifen (NOLVADEX) 20 mg chemo tablet TAKE 1 TABLET BY MOUTH EVERY DAY 90 tablet 3 warfarin (COUMADIN) 5 mg tablet Take 1 tablet (5 mg total) by mouth daily. [DISCONTINUED] dilTIAZem CD (CARDIZEM CD) 240 mg 24 hr capsule Take 1 capsule (240 mg total) by mouth daily. ALLERGIES: Patient has no allergy information on record. PHYSICAL EXAM: Blood pressure 108/77, pulse 98, temperature 36.7 ??C (98 ??F), temperature source Temporal, height1.676 m (66 ), weight 90.8 kg (200 lb 3.2 oz). Body mass index is 32.31 kg/m??. Plan is deferred because the patient is aged 65 or older and a weight gain/reduction plan would complicate other healthconditions APPEARANCE: Alert and in no acute distress EYES: PERRLA, conjunctiva and sclera normal EARS: External ears normal. Canals clear. TMs normal. NOSE/SINUS: Nares normal. Septum midline. Mucosa normal. 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 Left carpal tunnel syndrome 2. Atrial fibrillation, unspecified type (CMS/HCC) PLAN: Left carpal tunnel syndrome Status post release Has done quite well Atrial fibrillation She is up-to-date on her medications Healthcare maintenance issues addressed She will get her flu vaccine today Return to the office as needed for her yearly physical Orders Placed This Encounter Procedures Influenza trivalent, 0.5mL (Fluad) 65yo and older ADDITIONAL ORDERS: INFLUENZA TRIVALENT, 0.5ML (FLUAD) 65YO AND OLDER Lula Ambrose MD on 03/06/2024 at 2:15 PM EST documented in this encounter Plan of Treatment Upcoming Encounters Date Type Department Care Team (Late st Contact Info) Description 04/19/2024 3:30 PM EST Ancillary Procedure [facility] - [address] [place] [phone] 04/24/2024 1:15 PM EDT Office Visit Adult Medicine - [place] [address] [place] [phone] Lula Ambrose MD [address] [place] [address] 05/16/2024 10:00 AM EDT Office Visit Endocrinology - [place] [address] [place] [phone] Geovanna Pascual PA [address] [place] [address] 06/27/2024 11:30 AM EDT Office Visit [facility] Hematology Oncology [address] [place] [phone] Kobe Fox MD [address] [place] [phone] documented as of this encounter Visit Diagnoses Diagnosis Left carpal tunnel syndrome- Primary Carpal tunnel syndrome Atrial fibrillation, unspecified type (CMS/HCC) documented in this encounter Discontinued Medications Medication Sig Discontinue Reason Start Date End Da te betamethasone, augmented, (DIPROLENE-AF) 0.05 % cream Apply topically 2 (two) times a day. Therapy completed 03/06/2024 calcipotriene (DOVONOX) 0.005 % ointment Apply topically 2 (two) times a day. Therapy completed 03/06/2024 fluocinonide (LIDEX) 0.05 % cream Apply topically 2 (two) times a day. Therapy completed 03/06/2024 ketoconazole (NIZORAL) 2 % cream Apply topically daily. Therapy completed 03/06/2024 dilTIAZem CD (CARDIZEM CD) 240 mg 24 hr capsule Take 1 capsule (240 mg total) by mouth daily. Reorder 03/06/2024 documented as of this encounter Orders Immunization/Injection Count Last Ordered Date First Ordered Date INFLUENZA TRIVALENT, 0.5ML ( FLUAD) 65YO AND OLDER 1 03/06/2024 documented in this encounter Care Teams Manager Balance Relationship Specialty Start Date End Date Lula Ambrose MD [address] [place] [phone] PCP - General Internal Medicine 12/17/14 documented as of this encounter
--- OUTSIDE RECORDS SUMMARY | 2024-03-14 13:40 | XMS_ITS | Clinical Summary ---
Author Organization [facility] Address [address] [place] [address] Care Team Providers Care Sheet Tailer Name Role Phone Lula Ambrose MD Primary Care Prov ider Allergies No known active allergies Medications Medication Sig Dispensed Refills Start Date End Date Status dilTIAZem (CARDIZEM CD) 240 MG 24 hr capsule Take 1 capsule (240 mg total) by mouth daily. 0 Active fluocinonide (LIDEX) 0.05 % cream Apply topically 2 (two) times a day. 0 Active betamethasone, augmented, (DIPROLENE) 0.05 % cream Apply topically 2 (two) times a day. 0 Active warfarin (COUMADIN) 5 MG tablet Take 1 tablet (5 mg total) by mouth daily. 0 Active ketoconazole (NIZORAL) 2 % cream Apply topically daily. 0 Active calcipotriene (DOVONOX) 0.005 % ointment Apply topically 2 (two) times a day. 0 Active atorvastatin (LIPITOR) tablet 20 mg Take 1 tablet (20 mg total) by mouth daily. 0 Active lisinopril (PRINIVIL,ZESTRIL) tablet 5 mg Take 1 tablet (5 mg total) by mouth daily. 0 Active gabapentin (NEURONTIN) 100 MG capsule Take 3 capsules (300 mg total) by mouth 2 (two) times a day. 2 pill daily 0 Active tamoxifen (NOLVADEX) 20 MG tablet TAKE 1 TABLET BY MOUTH EVERY DAY 90 tablet 3 03/11/2023 Active Active Problems Problem Noted Date Diagnosed Date Atypical ductal hyperplasia of left breast 04/16 Social History Tobacco Use Types Packs/Day Years Used Date Smoking Tobacco: Former Smokeless Tobacco: Never Alcohol Use Standard Drinks/Week Comments Yes 0 (1 standard drink = 0.6 oz pur e alcohol) Sex and Gender Information Value Date Recorded Sex Assigned at Not on file Gender Identity Not on file Sexual Orientation Not on file Job Start Date Occupation Industry Not on file Not on file Not on file Last Filed Vital Signs Vital Sign Reading Time Taken Comments Blood Pressure 122/89 07/06/2023 11:52 AM EDT Pulse 80 07/06/2023 11:52 AM EDT Temperature 36.8 ??C (98.2 ??F) 07/06/2023 11:52 AM E DT Respiratory Rate - - Oxygen Saturation 97% 07/06/2023 11:52 AM EDT Inhaled Oxygen Concentration - - Weight 95.1 kg (209 lb 9.6 oz) 07/06/2023 11:52 AM EDT Height 170.2 cm (5' 7 ) 07/06/2023 11:52 AM EDT Body Mass Index 32.83 07/06/2023 11:52 AM EDT Plan of Treatment Health Maintenance Due Date Last Done Comments Hepatitis C Screening 1956 Depression Screening 1968 BMI Counseling 1974 Preventative Health Evaluation 1974 Colon Cancer Screening (Colonoscopy) 2001 Breast Cancer Screening (Mammogram) 2006 Fall Risk Assessment 2021 Osteoporosis Screening (DEXA Scan) 2021 Pneumococcal Vaccine (2 of 2 - PCV) 09/30/2022 09/30/2021 COVID-19 Vaccine (4 - 2023-2 5 season) 2023 08/04/2021, 06/30/2020, 06/09/2020 Influenza Vaccine (#1) 2023 , 04/07/2021, 01/01/2020 DTap / Tdap / Td (2 - Td or Tdap) 02/04/2025 02/04/2015 RSV Adult > 60+ Yrs or (1 - 1-dose 75+ series) 2031 Shingrix-Zoster Vaccine Completed 02/20/19 23, 04/07/2021 Hepatitis B Vaccines Aged Out No long er eligible based on patient's age to complete this topic RSV Ped < 20 months Aged Out No longe r eligible based on patient's age to complete this topic Care Teams Sheet Tailer Relationship Specialty Start Date End Date Lula Ambrose MD PCP - General Internal Medicine 03/27/20
== END 2024-03-14 13:24 | disposition home or self-care (01) ==
PROVIDERS: PCP Internal Medicine
DX: G56.02 Carpal tunnel syndrome, left upper limb (principal)
CPT/HCPCS: 99024

== ENCOUNTER 2024-03-21 12:50 | Outpatient (AMB) | payer BC, SELFPAY ==
--- OUTSIDE RECORDS SUMMARY | 2024-03-21 13:13 | XMS_ITS | Clinical Summary ---
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 2023 Atypical ductal hyperplasia of left breast 04/16 Encounters Date Type Department Care Team Description 03/06/2024 1:30 PM EST Office Visit Adult Medicine [address] [phone] Lula Wong MD Left carpal tunnel syndrome (Primary Dx); Atrial fibrillation, unspecified type (CMS/HCC) 02/29/2024 Telephone Adult Medicine [address] [phone] Lula Wong MD Hospital Follow-up 02/22/2024 Anticoagulation - Warfarin Visit Coumadin [address] [phone] Iram Kitchen LPN Atrial fibrillation, unspecified type (CMS/HCC) (Primary Dx); 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 01/31/2024 Telephone [facility] - [facility] [address] [facility] [address] [place] [address] Trinh Hoover MD Med Refill 01/26/2024 Anticoagulation - Warfarin Visit [facility] [address] [phone] Iram Hirshc LPN Atrial fibrillation, unspecified type (CMS/HCC) (Primary Dx); half-way (current) use of anticoagulants 01/11/2024 Anticoagulation - Warfarin Visit [facility] [address] [place] [address] Cecy Kahn LPN Atrial fibrillation, unspecified type (CMS/HCC) (Primary Dx); half-way (current) use of anticoagulants 01/04/2024 11:30 AM EST Office Visit [facility] Hematology Oncology [address] [place] [address] Kobe Fox MD Atypical ductal hyperplasia of left breast (Primary Dx) 12/29/2023 Anticoagulation - Warfarin Visit [facility] [address] [phone] Lula Wong MD from Last 3 Months Immunizations Name Administration Dates Next Due Influenza trivalent, 0.5mL ( Fluad) 65yo and older 03/06/2024 [employer] SARS-CoV-2 COVID-19, mRNA, LNP-S, preservative free 08/04/2021,06/30/2020,06/09/2020 Surgical History Surgery Date Site/Laterality Comments OTHER SURGICAL HISTORY PROCEDURE: [place] NASAL/SINUS NDSC SURG W/BX POLYPC/DBRDMT SPX; COMMENT: [...] Description 04/19/2024 3:30 PM EST Ancillary Procedure [facility] - [facility] [address] [facility] [place] [address] [place] [phone] 05/16/2024 10:00 AM EDT Office Visit Endocrinology - [place] [address] [place] [phone] Geovanna Pascual PA [address] [place] [address] 06/27/2024 11:30 AM EDT Office Visit [facility] Hematology Oncology [address] [place] [phone] Kobe Fox MD [address] [place] [phone] 08/08/2024 3:45 PM EDT Office Visit Adult Medicine - [place] [address] [place] [phone] Lula Ambrose MD [address] [place] [address] Health Maintenance Due Date Last Done Comments [...] PM EST Atrial fibrillation, unspecified type (CMS/HCC) 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 PROTHROMBIN TIME WITH INR Routine 01/25/2024 3:34 PM EST Encounter for therapeutic drug monitoring 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 Protime 25.9(H) 10.6 - 13.9 sec LAB COAGULATION METHOD 02/22/2024 2:28 PM EST [facility] INR 2.1 LAB COAGULATION METHOD 02/22/2024 2:28 PM EST [facility] Blood Venous blood specimen / Unknown Venipuncture / Unknown 02/22/2024 12:38 PM EST 02/22/2024 12:38 PM EST Lula Ambrose MD LAB BLOOD ORDERABLES [facility] [address] [place] [address], * DXA BONE DENSITY STUDY 1+ SITS [...] classified as having normal bone density. [facility] Department of Internal Medicine recommends using [...] beclassified as having normal bone density. [facility] Department of Internal Medicine recommendsusing National [...] Recently Relevant to Health Maintenance Care Teams Instructor Of Sociology Relationship Specialty Start Date End Date Lula Ambrose MD [address] [place] [address] PCP - General Internal Medicine 12/17/14
--- OUTSIDE RECORDS SUMMARY | 2024-03-21 13:13 | XMS_ITS | Encounter Summary ---
Author Organization [facility] Address [address] [place] [address] Care Team Providers Care Product Applications Engineer Name Role Phone Lula Ambrose MD Primary Care Prov ider Reason for Visit * Reason Onset Date Comments Hospital Follow-up 02/29/2024 Encounter Details Date Type Department Care Team ([facility] st Contact Info) Description 02/29/2024 Telephone Adult Medicine - [place] [address] [place] [phone] Lula Ambrose MD [address] [place] [address] Hospital Follow-up Social History Tobacco Use Types [...] as of this encounter Progress Notes * Renae Lagos RN - 02/29/2024 3:17 PM EST Spoke with patient. Appt scheduled 03/06 * Porfirio Olivares - 02/29/2024 3:13 PM EST Patient called back. Please call * Phil Patino RN - 02/29/2024 2:54 PM EST Left message for pt to please return our call * Porfirio Olivares - 02/29/2024 2:49 PM EST Hospital/ER follow up appointment needed Hospital patient was treated at: [facility] Was this only an ER visit or [...] Description 04/19/2024 3:30 PM EST Ancillary Procedure [facility] - [facility] [address] [phone] 05/16/2024 10:00 AM EDT Office Visit Endocrinology - [place] [address] [place] [phone] Geovanna Pascual PA [address] [place] [address] 06/27/2024 11:30 AM EDT Office Visit [facility] Hematology Oncology [address] [place] [phone] Kobe Fox MD [address] [place] [phone] 08/08/2024 3:45 PM EDT Office Visit Adult Medicine - [place] [address] [place] [address] Lula Ambrose MD [address] [place], [place] documented as of this encounter Visit Diagnoses Not on filedocumented in this encounter Care Teams Product Applications Engineer Relationship Specialty Start Date End Date Lula Ambrose MD [address] [place], [place] PCP - General Internal Medicine 12/17/14 documented as of this encounter
--- OUTSIDE RECORDS SUMMARY | 2024-03-21 13:13 | XMS_ITS | Encounter Summary ---
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 Social History Tobacco [...] Description 04/19/2024 3:30 PM EST Ancillary Procedure [facility] - [address] [place] [phone] 05/16/2024 10:00 AM EDT Office Visit Endocrinology - [place] [address] [place] [phone] Geovanna Pascual PA [address] [place] [address] 06/27/2024 11:30 AM EDT Office Visit [facility] Hematology Oncology [address] [place] [phone] Kobe Fox MD [address] [place] [phone] 08/08/2024 3:45 PM EDT Office Visit Adult Medicine - [place] [address] [place] [phone] Lula Ambrose MD [address] [place] [address] documented as of this encounter Visit Diagnoses Diagnosis Atrial fibrillation, unspecified type (CMS/HCC)- 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
--- OUTSIDE RECORDS SUMMARY | 2024-03-21 13:13 | XMS_ITS | Encounter Summary ---
Author Organization [facility] Address [address] [place] [address] Care Team Providers Care Engineer And Geologist Name Role Phone Lula Ambrose MD Primary Care Prov ider Reason for Visit * Reason Comments Hypertension Follow-up Encounter Details Date Type Department Care Team ([facility] Contact Info) Description 03/06/2024 1:30 PM EST Office Visit Adult Medicine - [address] [phone] Lula Ambrose MD [address] [place] [address] Left carpal tunnel syndrome (Primary Dx); Atrial [...] tunnel syndrome 03/06/2024 Atrial fibrillation (CMS/HCC) 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 Hematology Oncology [address] [place] [phone] Kobe Fox MD [address] [place] [phone] 08/08/2024 3:45 PM EDT Office Visit Adult Medicine - [address] [phone] Lula Ambrose MD [address] [place] [address] documented as of this encounter Visit Diagnoses [...] 03/06/2024 documented in this encounter Care Teams Engineer And Geologist Relationship Specialty Start Date End Date Lula Ambrose MD [address] [place] [address] PCP - General Internal Medicine 12/17/14 documented as of this encounter
[2024-03-21 13:14] VITALS: BMI 32.4
--- NOTE | 2024-03-21 13:14 | A.OFFVIS_ITS ---
Vital Signs 03/21/24 13:14 Height 5 ft 6 in Weight 201 lb BMI 32.4 Intake Visit Reasons: PO LT CTR 02/28/24 AR Intake Note: Lizbeth is a 68 year old right hand dominant female who presents today for a post operative wound check s/p left carpal tunnel release DOS: 02/28/[address] Roberts. At her last visit she was prescribed antibiotics that she completed today. Patient reports she is doing well, she has no concerns today. Allergies No Known Allergies Allergy (Verified 03/21/24 13:15) HPI HPI PO LT CTR 02/28/24 AR: Details: kika is a 68 year old right hand dominant female who presents today for a post operative wound check s/p left carpal tunnel release DOS: 02/28/[address] Roberts. At her last visit she was prescribed antibiotics that she completed today. Patient reports she is doing well, she has no concerns today. 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 Neuro: Normal sensation of the tips of all digits of the left hand at this time Vascular: Cap refill brisk Pain: Minimal tenderness to palpation about the proximal aspect of the incision site No pain with range of motion of the left hand ROM: Patient is able to make a closed fist and extend all digits of the left hand fully and without difficulty Skin: Well-approximated incision site noted on the volar left wrist Erythema resolved General: No ecchymosis, erythema, or evidence of infection. Psych: Appears grossly normal Affect normal Attitude cooperative Assessment & Plan Assessment & Plan (1) Carpal tunnel syndrome of left wrist: Code(s): G56.02 - Carpal tunnel syndrome, left upper limb Category: Medical Plan 1. status post left carpal tunnel release DOS 02/28/2024 Patient appears to be recovering well postoperatively Patient is educated about the typical recovery course Patient will follow-up in 1 week for wound check Patient was amenable to this plan Coding Level of Care Code Global (74734) Diagnoses Carpal tunnel syndrome of left wrist G56.02
== END 2024-03-21 13:26 | disposition home or self-care (01) ==
PROVIDERS: PCP Internal Medicine
DX: G56.02 Carpal tunnel syndrome, left upper limb (principal)
CPT/HCPCS: 99024

== ENCOUNTER → 2024-03-21 12:50 | Outpatient (BNVA) | payer BC, SELFPAY | PROVIDERS: PCP Internal Medicine ==